=== PATIENT | male | born 1950 ===

== ENCOUNTER 2017-07-22 01:29 | Emergency (ER) | payer MEDICARE ==
[2017-07-22 01:43] VITALS: BP 153/52; PULSE 75
--- NOTE | 2017-07-22 01:54 | C.PDOC ---
History Of Present Illness As per ems and family, pt was watching tv, having a few beers and started to not feel well and went to bed. Son noticed that he became diaphoretic and unresponsive and called 911. EMS arrived and found patient in PEA. Epi given then went into vtach -received total of 7 epis, bicarb, 450 amiodarone. Received patient in asystole, intubated and cpr in progress Time Seen by Provider: 07/22/17 01:51 Chief Complaint (Nursing): Cardiac Arrest History Per: EMS Reason For Code Blue: Full Arrest Circumstances: Brought To ED By EMS Arrest Witnessed By: Family CPR Initiated Prior To MD Arrival?: Yes Down-Time Before ACLS: Mins (30) Treatment Initiated Prior To MD Arrival: Yes: Intubation, Defibrillation, IVF, ACLS Medication Initiation, IV Access Medications Given Prior To MD Arrival: Yes: Epinephrine, Sodium Bicarb, Other ( amiodarone) - Initial Findings Mentation: Unresponsive Respirations: None (Assisted) Pulse: None Rhythm: Asystole Past Medical History Reviewed: Historical Data, Nursing Documentation, Vital Signs Vital Signs: Last Vital Signs Temp Pulse 75 07/22/17 01:32 Resp BP 153/52 H 07/22/17 01:44 Pulse Ox Family History: States: Unknown Family Hx - Social History Hx Alcohol Use: No Hx Substance Use: No - Immunization History Hx Tetanus Toxoid Vaccination: Yes Hx Influenza Vaccination: Yes Hx Pneumococcal Vaccination: Yes Review Of Systems Review Of Systems: ROS cannot be obtained secondary to pt's inabilty to answer questions. Physical Exam - Physical Exam Appears: In Acute Distress Skin: Pale, Cyanotic Head: Normacephalic Eye(s): bilateral: Other (fixed and dilated) Nose: Other (pink froth) Throat: Other (ett tube, pink froth aspirated thru the tube) Chest: Symmetrical Cardiovascular: Rhythm Regular (only with compressions ( EUGENE)) Respiratory: Decreased Breath Sounds, Rales Gastrointestinal/Abdominal: Soft Back: Normal Inspection Extremity: No Pedal Edema Extremity: Bilateral: No Pedal Edema Neurological/Psych: Other (unresponsive, intubated) Gait: Unable To Assess ED Course And Treatment Pulse Ox Interpretation: Abnormal (90) Progress Note: pt pronounced at 1:47 AM. Family at bedside - son and present and aware of the patient's . See code sheet Disposition Counseled Patient/Family Regarding: Studies Performed, Diagnosis - Disposition Disposition: WITH WITHOUT AUTOPSY Disposition Time: 02:00 Condition: Forms: [employer] (Mongolian) - Clinical Impression Clinical Impression: Cardiac arrest Critical Care Time - Critical Care Note Total Time (in mins): 30 Documented critical care: time excludes all time spent performing seperately billable procedures.
== END 2017-07-22 03:48 ==
LOC: C.ER 01:29
DX: I46.9 Cardiac arrest, cause unspecified (principal)
CPT/HCPCS: 82803; 82948; 92950; 99291; J0171; J7060